=== PATIENT | female | born 1990 | race Hispanic/Latino ===

== ENCOUNTER 2020-10-10 21:44 | Emergency (ER) | payer SELFPAY ==
[2020-10-10] MEDS ORDERED: HYDROCODONE/ACETAMINOPHEN 5/325 MG TAB ONE (22:29)
[2020-10-11] MEDS ORDERED: CEFAZOLIN SODIUM 1 GM VIAL ONE (00:10)
== END 2020-10-11 00:51 | disposition home or self-care (01) ==
LOC: EDH 21:44
DX: S02.31XA Fracture of orbital floor, right side, initial encounter for closed fracture (principal); F41.9 Anxiety disorder, unspecified; K21.9 Gastro-esophageal reflux disease without esophagitis; W01.0XXA Fall on same level from slipping, tripping and stumbling without subsequent striking against object, initial encounter; Y93.89 Activity, other specified; Y92.89 Other specified places as the place of occurrence of the external cause; Y99.8 Other external cause status
CPT/HCPCS: 70450; 70486; 72125; 81025; 96374; 99285; J0690

== ENCOUNTER 2022-01-18 05:44 | Emergency (ER) | payer OTHER ==
[~2022-01-18] VITALS: Ht 152.4 cm; Wt 65.8 kg
[2022-01-18 05:49] VITALS: BP 122/85
== END 2022-01-18 06:24 ==
LOC: EDH 05:44
DX: Z02.83 Encounter for blood-alcohol and blood-drug test (principal)

== ENCOUNTER 2025-04-05 08:29 | Emergency (ER) | payer OTHER ==
[~2025-04-05] VITALS: Ht 152.4 cm; Wt 65.3 kg
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
[2025-04-05] MEDS ORDERED: NAPR-1194 PO (10:01)
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
[2025-04-05 10:14] VITALS: BP 131/88; PULSE 80; RESP 18; TEMP 97.9; O2SAT 97
== END 2025-04-05 10:30 | disposition home or self-care (01) ==
LOC: EDH 08:29
DX: S50.02XA Contusion of left elbow, initial encounter (principal); V43.52XA Car driver injured in collision with other type car in traffic accident, initial encounter; Y93.89 Activity, other specified; Y92.488 Other paved roadways as the place of occurrence of the external cause; Y99.8 Other external cause status
CPT/HCPCS: 29105; 73070; 99283